=== PATIENT | male | born 1995 | race Hispanic/Latino ===

== ENCOUNTER 2023-09-12 08:05 | Emergency (ER) | payer OTHER ==
[2023-09-12] MEDS ORDERED: Ketorolac Tromethamine 30 MG (1 mL) VIAL ONE (08:35)
[2023-09-12] MEDS ORDERED: Acetaminophen 500 MG TAB ONE (08:35)
[2023-09-12] MEDS ORDERED: Dexamethasone 10 MG/ML VIAL ONE (08:35)
[2023-09-12 09:40] LABS: Influenza A by NAA Not Detected (NotDetected); Influenza B by NAA Not Detected (NotDetected); SARS-CoV-2 NAA Rapid Test Not Detected (NotDetected)
== END 2023-09-12 10:14 | disposition home or self-care (01) ==
LOC: ERS 08:05
DX: R05.9 Cough, unspecified (principal); R52 Pain, unspecified
CPT/HCPCS: 71046; 96372; J1100; J1885